=== PATIENT | male | born 1980 | race Caucasian/White ===

== ENCOUNTER 2020-02-13 02:32 | Emergency (ER) | payer MEDICAID, OTHER ==
[2020-02-13] MEDS ORDERED: Acetaminophen/HYDROcodone 325-5 MG Tab PO ONE ×2 (02:33→03:06)
--- NOTE | 2020-02-13 02:54 | EDM.PDOC ---
ED HPI GENERAL MEDICAL PROBLEM - General Stated Complaint: TOOTH PAIN Time Seen by Provider: 02/13/20 02:50 Source of Information: Reports: Patient History Limitations: Reports: No Limitations - History of Present Illness INITIAL COMMENTS - FREE TEXT/NARRATIVE: 39-year-old male who states at approximately 12:30 AM tonight he was eating a piece of toast and he felt a crunch on his left lower teeth and he reports that he had a sharp pain at that time. Since then the pain has progressively worsened and now is a 10/10 pain that on his jaw and radiating across his left face. There is pain with chewing and when the air hits the lower tooth on the left side. There is no nausea or vomiting. He has no neck pain or arm pain. There is no chest pain. No shortness of breath. No back pain. He states that he has had pain off and on over a number of years in his left lower tooth but has not seen a dentist for this. He has no fevers or chills. He presents to the emergency department via private vehicle. His drove him here. There are no other associated signs or symptoms. There are no other modifying factors. 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: Acetaminophen, NSAIDS L upper & lower jaw Pain Score (Numeric/FACES): 10 - Related Data Allergies Allergy/AdvReac Type Severity Reaction Status Date / Time No Known Allergies Allergy Verified 02/13/20 02:48 Home Meds: Home Meds Amoxicillin/Clavulanate K [Augmentin 875-125 MG] 1 tab PO BID 10 Days #20 tab 02/13/20 [Rx] Aspirin 81 mg PO DAILY 02/13/20 [History] Clopidogrel Bisulfate [Plavix] 75 mg PO DAILY 02/13/20 [History] Metoprolol Succinate [Toprol XL 100mg] 100 mg PO DAILY 02/13/20 [History] Rosuvastatin [Crestor] 20 mg PO DAILY 02/13/20 [History] Past Medical History Cardiovascular History: Reports: CAD, High Cholesterol, Hypertension, [place], Stents Other Cardiovascular History: Takes medication for hypertension. Gastrointestinal History: Reports: GERD Genitourinary History: Reports: Renal Calculus - Past Surgical History Cardiovascular Surgical History: Reports: Coronary Artery Stent, Percutaneous Transluminal Angioplasty Other Male Surgeries/Procedures: States he has had a cystoscopy related to kidney stones. 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.) ED ROS ENT - Review of Systems Review Of Systems: See Below Constitutional: Reports: No Symptoms HEENT: Reports: Dental Pain Respiratory: Reports: No Symptoms Cardiovascular: Reports: No Symptoms GI/Abdominal: Reports: No Symptoms : Reports: No Symptoms Musculoskeletal: Reports: No Symptoms Skin: Reports: No Symptoms Neurological: Reports: No Symptoms Hematologic/Lymphatic: Reports: No Symptoms Immunologic: Reports: No Symptoms ED EXAM, ENT - Physical Exam Exam: See Below General Appearance: Alert, WD/WN, Moderate Distress (Appears in acute pain.) Eye Exam: Bilateral Eye: EOMI, Normal Inspection Ears: Normal External Exam, Hearing Grossly Normal Nose: Normal Inspection, Normal Mucousa, No Blood Mouth/Throat: Normal Lips, Dental Pain, Dental Tenderness, Other (Dental caries) Head: Atraumatic, Normocephalic Neck: Normal Inspection, Supple, Non-Tender, Full Range of Motion Respiratory/Chest: No Respiratory Distress, Lungs Clear, Normal Breath Sounds, No Accessory Muscle Use, Chest Non-Tender Cardiovascular: Normal Peripheral Pulses, Regular Rate, Rhythm, No Murmur GI/Abdominal: Normal Bowel Sounds, Soft, Non-Tender, No Mass Back: Normal Inspection, Full Range of Motion Extremities: Normal Inspection, Normal Range of Motion, Non-Tender, No Pedal Edema, Normal Capillary Refill Neurological: Alert, Oriented, CN II-XII Intact, Normal Cognition, No Motor/Sensory Deficits Skin: Warm, Dry, Intact, Normal Color, No Rash Course - Vital Signs Last Recorded V/S: Last Vital Signs Temp 36.6 C 02/13/20 02:33 Pulse 89 02/13/20 02:33 Resp 20 02/13/20 02:33 BP 202/102 H 02/13/20 02:33 Pulse Ox 99 02/13/20 02:33 - Orders/Labs/Meds Meds: Medications Discontinued Medications Generic Name Dose Route Start Last Admin Trade Name Meme PRN Reason Stop Dose Admin Hydrocodone Bitart/Acetaminophen 2 tab 02/13/20 03:06 [place] 325-5 Mg PO 02/13/20 03:07 ONETIME ONE Amoxicillin/Clavulanate Potassium 2 tab 02/13/20 03:07 Augmentin 875 Mg/125 Mg PO 02/13/20 03:08 ONETIME ONE - Re-Assessments/Exams Free Text/Narrative Re-Assessment/Exam: 02/13/20 03:00: Patient with dental caries and with pain along his left lower teeth and jaw. There is some gingival erythema around the base of these teeth. He has pain with palpation over these areas. He does not have any chest pain or neck or back or arm pain. This appears to be pain related to the dental caries and a presumed dental abscess. I will place the patient on Augmentin 875 mg twice daily. I have also given him hydrocodone 5/325, 2 tablets by mouth now and I have given him a take-home pack of hydrocodone 5/325 that he can use for moderate to severe pain. He can also take ibuprofen for his pain. I have urged him to see a dentist soon as he can arrange. Precautions and reasons for return to the emergency department were discussed with the patient while he was in the emergency department over detailed in the patient's discharge instructions. Departure - Departure Time of Disposition: 03:10 Disposition: Home, Self-Care 01 Condition: Good Clinical Impression: Pain, dental, Dental infection, Dental caries - Discharge Information *PRESCRIPTION DRUG MONITORING PROGRAM REVIEWED*: Yes *COPY OF PRESCRIPTION DRUG MONITORING REPORT IN PATIENT TERRI: No Prescriptions: Amoxicillin/Clavulanate K [Augmentin 875-125 MG] 1 tab PO BID 10 Days #20 tab Instructions: Dental Abscess, [id number] Additional Instructions: You have a possible dental infection associated with your dental caries causing your pain. You need to see a dentist as soon as you can arrange. Medication as prescribed (Augmentin 875 mg, hydrocodone 5/325). Stick with a soft diet. Avoid chewing over the left side of your mouth. Back to the emergency department immediately if you develop any chest pain, arm or neck pain, shortness of breath, unrelenting vomiting or any other concerning sign or symptom. Sepsis Event Note (ED) - Focused Exam Vital Signs: Vital Signs Temp Pulse Resp BP Pulse Ox 02/13/20 02:33 36.6 C 89 20 202/102 H 99
[2020-02-13] MEDS ORDERED: Amoxicillin/Clavulanate K 875-125 MG Tab PO ONE (03:07)
[2020-02-13 03:36] VITALS: BP 186/107; PULSE 81
== END 2020-02-13 03:26 | disposition home or self-care (01) ==
LOC: FB.ED 02:32
DX: K04.7 Periapical abscess without sinus (principal); K02.9 Dental caries, unspecified; I25.10 Atherosclerotic heart disease of native coronary artery without angina pectoris; E78.00 Pure hypercholesterolemia, unspecified; I10 Essential (primary) hypertension; I25.2 Old myocardial infarction; F17.200 Nicotine dependence, unspecified, uncomplicated; Z79.899 Other long term (current) drug therapy; Z95.5 Presence of coronary angioplasty implant and graft; Z79.82 Long term (current) use of aspirin; Z79.02 Long term (current) use of antithrombotics/antiplatelets
CPT/HCPCS: 99282; 99283; A9270-GY

== ENCOUNTER 2021-08-25 20:57 | Emergency (ER) | payer OTHER, MEDICAID ==
[2021-08-25] MEDS ORDERED: cloNIDine 0.1 MG Tab PO STA (21:30)
[2021-08-25] MEDS ORDERED: Labetalol 20 MG/4 ML Syringe IVPUSH ONE ×2 (21:33→23:21)
[2021-08-25 21:56] LABS: ESTIMATED GFR 71 mL/min (>60)
[2021-08-25] MEDS ORDERED: Metoprolol Succinate 100 MG Tab.ER PO STA (22:38)
[2021-08-25] MEDS ORDERED: Sodium Chloride 0.9% 10 ML Syringe FLUSH PRN (22:42)
[2021-08-25 23:02] VITALS: BP 202/128; PULSE 96
[2021-08-25] MEDS ORDERED: hydrALAZINE 20 MG/ML SDV IVPUSH STA (23:21)
== END 2021-08-26 01:01 ==
LOC: FB.ED 20:57
DX: R07.9 Chest pain, unspecified (principal); I16.9 Hypertensive crisis, unspecified; I25.10 Atherosclerotic heart disease of native coronary artery without angina pectoris; E78.00 Pure hypercholesterolemia, unspecified; I10 Essential (primary) hypertension; I25.2 Old myocardial infarction; Z79.82 Long term (current) use of aspirin; Z79.02 Long term (current) use of antithrombotics/antiplatelets; Z79.899 Other long term (current) drug therapy
CPT/HCPCS: 36415; 80053; 81001; 84484; 85025; 93005; 96374; 96375; 96376; 99285; A9270; J0360; J3490